=== PATIENT | male | born 1980 | race Caucasian/White ===

== ENCOUNTER → 2018-06-21 15:31 | Outpatient (REF) | payer MEDICARE, SELFPAY ==
[2018-06-21 19:00] LABS: Cholesterol 254 mg/dL (50-200); HDL Cholesterol 43 mg/dL (40-60); LDL CHOLESTEROL 185 mg/dL (<100); Triglyceride 181 mg/dL (30-150)
== END ==
LOC: NCHCN 15:31
PROVIDERS: PCP Nurse Practitioner Family; Visit Provider Nurse Practitioner
DX: I10 Essential (primary) hypertension (principal); E66.9 Obesity, unspecified
CPT/HCPCS: 80061; 83721

== ENCOUNTER 2018-11-01 01:11 | Outpatient (CLI) | payer MEDICARE, SELFPAY ==
[2018-11-01 16:33] LABS: Abs Immature Grans 0.02 k/cumm (0.0-0.09); Absolute Basophil Count 0.06 k/cumm (0.0-0.2); Absolute Eosinophil Count 0.12 k/cumm (0.0-0.7); Absolute Lymphocyte Count 2.94 k/cumm (1.2-3.4); Absolute Neutrophil Count 4.02 k/cumm (1.2-6.7); Basophils % 0.8; Eosinophils % 1.5; HCT 46.6 % (40.0-50.0); HGB 15.9 g/dL (13.5-17.5); Immature Grans % 0.3; Lymphocytes % 37.4; Mean Corp. HGB Concentration 34.1 g/dL (32.0-36.0); Mean Corpuscular Hemoglobin 31.1 pg (27.0-33.0); Mean Platelet Volume 9.7 fL (8.0-11.0); Monocytes % 8.9; Neutrophils % 51.1; Platelet Count 276 x1000/uL (130-400); RBC 5.12 m/cumm (4.50-6.00); RBC Distribution Width 13.3 % (11.8-14.1); White Blood Cell Count 7.86 k/cumm (4.4-10.8)
[2018-11-01 18:17] LABS: ALT 148 U/L (12-78); AST 82 U/L (15-37); Albumin 4.3 g/dL (3.4-5.0); Alkaline Phosphatase 76 U/L (46-116); Anion Gap 12.8 mmol/L (3-11); BUN 10 mg/dL (7-18); Bilirubin, Total 0.6 mg/dL (0.2-1.0); CO2 25.2 mmol/L (21.0-32.0); CREATININE 1.01 mg/dL (0.70-1.30); Calcium 9.3 mg/dL (8.5-10.1); Chloride 98 mmol/L (98-107); Cholesterol 270 mg/dL (50-200); Glucose 105 mg/dL (70-100); HDL Cholesterol 45 mg/dL (40-60); LDL CHOLESTEROL 191 mg/dL (<100); Potassium 4.2 mmol/L (3.5-5.1); Sodium 136 mmol/L (136-145); TSH (W/Ref FT4) 2.72 uIU/mL (0.358-3.74); Total Protein 7.8 g/dL (6.4-8.2); Triglyceride 198 mg/dL (30-150)
[2018-11-01 18:31] LABS: Vitamin D 25 Total 24.5 ng/ml (30-100)
[2018-11-01 18:53] LABS: Hemoglobin A1C 7.6 % (4.5-6.2)
== END 2018-11-01 01:31 ==
PROVIDERS: PCP Nurse Practitioner; Visit Provider Nurse Practitioner Psychiatric/Mental Health
DX: F20.9 Schizophrenia, unspecified (principal); Z79.899 Other long term (current) drug therapy
CPT/HCPCS: 36415; 80053; 80061; 82306; 83721; 83036; 84443; 85025

== ENCOUNTER 2019-01-14 08:30 | Outpatient (CLI) | payer MEDICARE, SELFPAY ==
[2019-01-14 09:53] LABS: Abs Immature Grans 0.05 k/cumm (0.0-0.09); Absolute Basophil Count 0.08 k/cumm (0.0-0.2); Absolute Lymphocyte Count 3.36 k/cumm (1.2-3.4); Absolute Monocyte Count 0.78 k/cumm (0.11-0.7); Absolute Neutrophil Count 4.02 k/cumm (1.2-6.7); Basophils % 0.9; Eosinophils % 2.4; HCT 48.5 % (40.0-50.0); HGB 16.6 g/dL (13.5-17.5); Immature Grans % 0.6; Lymphocytes % 39.6; Mean Corp. HGB Concentration 34.2 g/dL (32.0-36.0); Mean Corpuscular Volume 90.7 fL (80-95); Mean Platelet Volume 10.6 fL (8.0-11.0); Monocytes % 9.2; Neutrophils % 47.3; Platelet Count 244 x1000/uL (130-400); RBC 5.35 m/cumm (4.50-6.00); White Blood Cell Count 8.49 k/cumm (4.4-10.8)
[2019-01-14 10:21] LABS: ALT 127 U/L (12-78); AST 59 U/L (15-37); Albumin 4.1 g/dL (3.4-5.0); Alkaline Phosphatase 85 U/L (46-116); Anion Gap 13.7 mmol/L (3-11); BUN 15 mg/dL (7-18); Bilirubin, Total 0.5 mg/dL (0.2-1.0); CO2 25.3 mmol/L (21.0-32.0); CREATININE 1.05 mg/dL (0.70-1.30); Calcium 9.3 mg/dL (8.5-10.1); Chloride 99 mmol/L (98-107); Cholesterol 240 mg/dL (50-200); Glucose 170 mg/dL (70-100); HDL Cholesterol 38 mg/dL (40-60); LDL CHOLESTEROL 155 mg/dL (<100); Potassium 4.4 mmol/L (3.5-5.1); Sodium 138 mmol/L (136-145); TSH (W/Ref FT4) 2.78 uIU/mL (0.358-3.74); Total Protein 7.9 g/dL (6.4-8.2); Triglyceride 277 mg/dL (30-150)
[2019-01-14 10:42] LABS: Hemoglobin A1C 8.3 % (4.5-6.2)
[2019-01-17 12:28] LABS: Testosterone, Total 216 ng/dL (240-950)
== END 2019-01-14 08:50 ==
PROVIDERS: PCP Nurse Practitioner; Visit Provider Nurse Practitioner Psychiatric/Mental Health
DX: F20.9 Schizophrenia, unspecified (principal); R53.81 Other malaise; I10 Essential (primary) hypertension; Z79.899 Other long term (current) drug therapy
CPT/HCPCS: 36415; 80053; 80061; 83721; 84403; 83036; 84443; 85025; 93005; 93010

== ENCOUNTER 2019-01-25 09:02 | Outpatient (REF) | payer MEDICARE, SELFPAY ==
[2019-01-25 13:29] LABS: GGT 182 U/L (15-85)
[2019-01-25 13:32] LABS: Iron 85 ug/dL (50-175); Total Iron Binding Capacity 324 ug/dL (250-450); Transferrin Sat 26 % (20-55)
[2019-01-28 15:19] LABS: Testosterone, Free 9.08 ng/dL (4.65-18.1); Testosterone, Total 227 ng/dL (240-950)
== END 2019-01-25 09:22 ==
LOC: NCHCN 09:02
PROVIDERS: PCP Nurse Practitioner; Visit Provider Nurse Practitioner
DX: R79.89 Other specified abnormal findings of blood chemistry (principal); E29.1 Testicular hypofunction; Z79.899 Other long term (current) drug therapy
CPT/HCPCS: 84402; 84403; 82977; 83540; 83550

== ENCOUNTER 2019-02-01 00:26 | Outpatient (CLI) | payer MEDICARE, SELFPAY ==
--- NOTE | 2019-02-01 07:59 | DI.US_ITS ---
SYMPTOM/DIAGNOSIS: ELEVATED LFT'S. R79.89 ABDOMEN ULTRASOUND: The liver is mildly echogenic and heterogeneous raising the possibility of hepatic steatosis. No focal hepatic lesion identified. There is no evidence of cholelithiasis or biliary dilatation. Pancreas is not well visualized but grossly unremarkable. The kidneys appear normal bilaterally. Spleen appears normal. Abdominal aorta and IVC are of normal diameter as visualized. CONCLUSION: Question hepatic steatosis. The examination is otherwise unremarkable.
== END 2019-02-01 00:46 ==
PROVIDERS: PCP Nurse Practitioner; Visit Provider Nurse Practitioner
DX: R79.89 Other specified abnormal findings of blood chemistry (principal); K76.89 Other specified diseases of liver
CPT/HCPCS: 76700